=== PATIENT | female | born 1985 | race Caucasian/White ===

== ENCOUNTER → 2023-02-05 09:39 | Outpatient (CLI) | payer BC, SELFPAY ==
--- NOTE | ~2023-02-05 | US_ITS ---
EXAMINATION: US breast RT limited HISTORY: Painful palpable lump at the 3:00 location of the right breast. TECHNIQUE: Limited right breast ultrasound is performed in the area of clinical concern. FINDINGS: There is an approximately 2.0 x 1.1 cm irregular hypoechoic mass with posterior acoustic en hancement and peripheral vascularity at the 3:00 location 10 cm from the nipple corresponding to the area of clinical concern. There is surrounding edema of the breast as well as in the overlying skin. IMPRESSION: Probable small right breast abscess. Recommend continued antibiotic therapy and consider ultrasound-g uided aspiration. BI-RADS Category 2: Benign finding(s). Reviewed, dictated and finalized at location A. IMPRESSION: Probable small right breast abscess. Recommend continued antibiotic therapy and consider ultrasound-guided aspiration. BI-RADS Category 2: Benign finding(s).
== END ==
PROVIDERS: PCP Internal Medicine; Visit Provider Obstetrics & Gynecology
DX: N63.15 Unspecified lump in the right breast, overlapping quadrants (principal)
CPT/HCPCS: 76642

== ENCOUNTER 2023-02-12 09:06 | Outpatient (CLI) | payer BC, SELFPAY ==
--- NOTE | ~2023-02-12 | US_ITS ---
US breast RT limited DATE: 02/12/2023 09:41 INDICATION: Right breast abscess TECHNIQUE: Real-time and color flow imaging targeted at right breast 3:00 10 cm from nipple COMPARISON: February 05, 2023 limited right breast ultrasound examination FINDINGS: There is considerably diminished size of the previously reported 2 x 1.1 cm irregular hypoe choic mass with posterior enhancement and peripheral vascularity at the 3:00 position 10 cm from the nipple since February 05, 2023. Currently the hypoechoic area measures only approximately 3 x 4 x 5 mm. The findings are consistent with abscess responding to antibiotic therapy. Short-term follow-up ultra sound examination is recommended. IMPRESSION: Considerable improvement of right breast 3:00 10 cm from nipple abscess on antibiotic the rapy since February 05, 2023, with minimal residual. Recommendation: Short-term follow-up targeted right breast ultrasound at 3:00 10 cm from nipple Reviewed, dictated and finalized at [facility]. Reviewed, dictated and finalized at location A. IMPRESSION: Considerable improvement of right breast 3:00 10 cm from nipple abs cess on antibiotic therapy since February 05, 2023, with minimal residual. Recommendation: Short-term follow-up targeted right breast ultrasound at 3:00 1 0 cm from nipple
== END 2023-02-12 09:07 | disposition home or self-care (01) ==
PROVIDERS: PCP Internal Medicine; Visit Provider Surgery
DX: N64.59 Other signs and symptoms in breast (principal)
CPT/HCPCS: 19000; 76642; 76942